=== PATIENT | male | born 1940 | race Caucasian/White ===

== ENCOUNTER 2017-09-09 15:38 | Inpatient (IN) | payer MEDICARE, BC ==
[2017-09-09 16:14] LABS: pH, Arterial 7.26 (7.35-7.45)
[2017-09-09 16:15] LABS: Actual Bicarbonate (HCO3a) 26.6 mEq/L (22-26); Base Excess (BEa) -1.7 mEq/L (0 (+/-) 2.5); CO2 Tension 61.4 mmHg (35.0-45.0); Hematocrit-ABG 43.3 % (42.0-52.0); O2 Tension (PaO2) 50.7 mmHg (80.0-100.0)
[2017-09-09 16:16] LABS: Analyzer IN Cardio ER; Calcium, Ionized 1.1 mmol/L (1.12-1.30); Hemoglobin (Hb) 13.8 g/dL (14.0-18.0); Puncture Site RBRACH
[2017-09-09] MEDS ORDERED: CCU Electrolyte Replacement 1 EACH FS ONE (17:27)
[2017-09-09] MEDS ORDERED: Ondansetron HCl/PF 4 MG/2 ML Vial IVP PRN ×2 (17:27→17:34)
[2017-09-09] MEDS ORDERED: Acetaminophen 325 MG TAB PO PRN (17:27)
[2017-09-09] MEDS ORDERED: Acetaminophen 650 MG Suppository PR PRN (17:27)
[2017-09-09] MEDS ORDERED: Mag-Al 1200 mg/1200 mg/30 ML UDCUP PO PRN ×2 (17:27→17:34)
[2017-09-09] MEDS ORDERED: Calcium Carbonate 500 MG ChewTAB PO PRN (17:27)
[2017-09-09] MEDS ORDERED: Norepinephrine 8 MG/0.9% NS 250 ML IVPB PRN (17:27)
[2017-09-09] MEDS ORDERED: Bisacodyl 10 MG SUPP PR PRN (17:27)
[2017-09-09] MEDS ORDERED: CCU Electrolyte Replacement 1 EACH IVPB ONE (17:34)
[2017-09-09] MEDS ORDERED: Benzonatate 100 MG CAP PO PRN (17:34)
[2017-09-09] MEDS ORDERED: cloNIDine 0.1 MG TAB PO PRN (17:34)
[2017-09-09] MEDS ORDERED: Loratadine 10 MG TAB PO PRN (17:34)
[2017-09-09] MEDS ORDERED: hydrALAZINE 20 MG/ML VIAL SLOW IVP PRN (17:34)
[2017-09-09] MEDS ORDERED: Nitroglycerin 0.4 MG TAB (25 Tab Bottle) SL PRN (17:34)
[2017-09-09] MEDS ORDERED: Milk Of Magnesia 30 ML UDCUP PO PRN (17:34)
[2017-09-09] MEDS ORDERED: Diabetic Tussin 200 MG/10 ML UDCUP PO PRN (17:34)
[2017-09-09] MEDS ORDERED: Dextrose 5 %-0.45 % NaCl 1,000 ML IV SCH (17:45)
[2017-09-09] MEDS ORDERED: Potassium Chloride 40 MEQ in Sodium Chloride 0.9% 250 ML 250 ML IVPB PRN (17:52)
[2017-09-09] MEDS ORDERED: Potassium Chloride 40 MEQ in Premix Bag 1 BAG IVPB PRN (17:52)
[2017-09-09] MEDS ORDERED: Magnesium 2 GM/NS 0.9% 100 ML 2 GM in Premix Bag 1 BAG IVPB PRN (17:52)
[2017-09-09] MEDS ORDERED: CCU ELECTROLYTE REPLACEMENT PROTOCOL FS PRN (17:52)
[2017-09-09] MEDS ORDERED: Potassium Chloride 20 MEQ TAB PO PRN (17:52)
[2017-09-09] MEDS ORDERED: Potassium Phosphate 12 MMOL in Sodium Chloride 0.9% 250 ML 250 ML IV PRN (17:52)
[2017-09-09] MEDS ORDERED: Potassium Phosphate 15 MMOL in Sodium Chloride 0.9% 250 ML 250 ML IV PRN (17:52)
[2017-09-09] MEDS ORDERED: Potassium Phosphate 9 MMOL in Sodium Chloride 0.9% 100 ML IVPB PRN (17:52)
[2017-09-09] MEDS ORDERED: Magnesium Oxide 400 MG TAB PO PRN ×2 (17:52)
[2017-09-09 17:59] LABS: Troponin I 0.107 ng/mL (< 0.028)
[2017-09-09] MEDS ORDERED: Vancomycin HCl 1.5 GM in Sodium Chloride 0.9% 250 ML 300 ML IVPB SCH (18:45)
[2017-09-09] MEDS: Dextrose 5 %-0.45 % NaCl 1,000 ML IV SCH (19:46)
[2017-09-09] MEDS: Cefepime 2 GM in Sodium Chloride 0.9% 100 ML IVPB SCH (20:53)
[2017-09-09] MEDS: Famotidine/PF 20 mg/2ml Vial SLOW IVP SCH (20:53)
[2017-09-09 20:59] LABS: Troponin I 0.098 ng/mL (< 0.028)
[2017-09-09] MEDS: Heparin 5,000 UNITS/ML VIAL SC SCH (20:59)
[2017-09-09] MEDS ORDERED: Vancomycin HCl 1 GM in Sodium Chloride 0.9% 250 ML 250 ML IVPB SCH (21:00)
--- NOTE | 2017-09-09 21:25 | HP ---
DATE OF ADMISSION: 09/10/2017 PRIMARY CARE PHYSICIAN: Dr. Mckeon. CHIEF COMPLAINT: Unresponsiveness, shortness of breath, and fall. HISTORY OF PRESENT ILLNESS: Mr. Gilbert is a 77-year-old male with history of hydrocephalus status pos t CLINICAL TRIALS DATA COORDINATOR shunt in the past as well as history of prostate cancer with removal of prostate and bladder wit h ileal conduit outside and history of dyslipidemia and tobacco abuse, who presented to the emergency room with the above-mentioned complaint. He was brought in via EMS initially to [place] [facility] with these complaints. History is mainly obtained by record review and discussion with the emergency room physician. The patient is on BiPAP and is quite altered and is not able to provide an y history and the left shortly afterwards and was not able to stay for history taking part becau se of young grandchild. According to the reports, EMS was called because the patient was feeling short of breath at home and when he was trying to get out off the wheelchair, he fell. According to the history given to the ER physician by : The patient is largely nonverbal, but he is able to ambulate himself from inside to outside to smoke and that is what he usually does all day long according to the . He has hist ory of pneumonia requiring intubation about a year ago when he was admitted at [facility] and he was a difficult extubation according to her. According to the report given by , he beauchamp s not like to eat or drink, or do much. He mainly just sits inside or outside and smokes. Nevertheless, upon presentation to the emergency room, he was very hypoxic with oxygen saturation of 88% on 4 liters oxygen. Blood pressure was 133/78, pulse of 109. In [place], he underwent trau ma and fall workup including a CT scan of the head, which was negative for any acute bleed or fractur es. He underwent a CT scan of the cervical spine, which was also negative for any acute fractures. He then underwent a CT scan of the chest, abdomen, and pelvis because of concerns of hypoxia and abdo esem distention. He was found to have left patchy infiltrate and a small pleural effusion on the le ft side. There is a concerning mass, which is necrotizing with possible superimposed infection in th e left lung with possibility of malignancy. CT scan of the abdomen and pelvis was unremarkable. He was given Zosyn and azithromycin in [place] ER and was transferred to our facility for further c are. In our emergency room, he was quite hypoxic and an ABG was checked that he was quite tachypneic as we ll. His ABG showed a pH of 7.26 with pCO2 of 61 and pO2 of 50. Emergency room physician put him on BiPAP and with few minutes of BiPAP, he started to come around and his oxygenation improved. He is n ow being admitted to IMCU on BiPAP for acute hypoxic respiratory failure: Pneumonia and new necrotiz ing lung mass. PAST MEDICAL HISTORY: 1. History of cerebrovascular accident. 2. Seizure disorder. 3. Normal pressure hydrocephalus with shunt placement in 2009. 4. History of prostate cancer with removal of prostate and bladder with an ileal conduit. 5. Hypertension. 6. Dyslipidemia. 7. Tobacco abuse and active smoker. 8. History of DVT, status post IVC filter. PAST SURGICAL HISTORY: 1. Left carotid endarterectomy. 2. Appendectomy. 3. Tonsillectomy 4. Adenoidectomy. 5. IVC filter placement. 6. Hemorrhoidectomy. ALLERGIES: No known medication allergies. CURRENT MEDICATIONS: Unavailable. SOCIAL HISTORY: He is and smokes about half pack a day for at least 52 years. No history of alcohol or drug abuse. FAMILY HISTORY: Significant for Alzheimer's and lung cancer. REVIEW OF SYSTEMS: Unobtainable as the patient is quite altered and is on BiPAP. He barely opens hi s eyes and response to verbal stimulus. LABORATORY DATA: Labs done in [place] as follows: CBC shows WBCs of 14.4 with 29% bands, hemog lobin and platelet count are within normal limits. His PT is 16.8, INR and PTT unremarkable. Serum chemistries show sodium of 147, BUN 69, creatinine 4.68. AST 289, ALT 62, troponin 0.107, blood suga r 134. Dilantin level less than 1.8. CT scan of the brain by my review has no evidence to suggest any subdural hematoma or hemorrhage or m asses. Chronic findings noticed. CT scan of the cervical spine is negative for any osseous abnormal ity. CT scan of the chest, abdomen, and pelvis as above. A 12-lead EKG by my review shows normal sinus rhythm at 83 beats per minute without any acute ST or T -wave changes. PHYSICAL EXAMINATION: VITAL SIGNS: Most recent vital signs, temperature 101.1, pulse of 89, respirations 33, saturating 92 % on BiPAP, blood pressure 130/62. GENERAL: He is quite uncomfortable and completely altered. He is on BiPAP mask. He is hallucinatin g and keeps his eyes closed and moves his hands in air nonpurposely. He is not able to answer any qu estions or follow any commands and he does not respond to any verbal stimulus. He appears shabby and unkempt. HEENT: Mucous membrane is dry. Difficult to assess further because of the BiPAP mask. Head is norm ocephalic, atraumatic. Pupils equal, reactive to light and accommodation. Sclerae anicteric. NECK: Supple without any lymphadenopathy, JVD, or bruit. CHEST: Revealed loud rhonchi bilaterally without any significant wheezes or crackles. CARDIOVASCULAR: Regular rate and rhythm appears regular without any murmur, rubs, or gallops. ABDOMEN: Nontender, somewhat distended and soft. He has an ileal conduit coming out to his right lo wer abdomen, which is covered by a diaper. He does not have any urine bag on it. EXTREMITIES: Free of any cyanosis, clubbing, or edema. NEUROLOGIC: Difficult to complete as the patient does not follow any commands. He is moving his upp er extremities on both sides freely, but other than that it is incomplete. SKIN: Shows free of any rashes. He has some bruises on the lower extremities and small minor abrasi ons. IMPRESSION AND PLAN: 1. Acute hypoxic respiratory failure. This is likely secondary to undiagnosed chronic obstructive p ulmonary disease as well as pneumonia and lung mass, possibly cancer. At this time, he will be kerrie nued on BiPAP and we will request consultation with Pulmonary Medicine and he will be admitted to [facility]. We will start him on nebulizers as needed on scheduled basis. He will be treated with empiric IV antibiotics. 2. Sepsis. This is secondary to pneumonia. He has leukocytosis and is febrile and has pneumonia. Empiric IV antibiotics as above. Blood cultures have been obtained in [place] room and we will follow the results. 3. Pneumonia. Most likely postobstructive pneumonia due to the lung mass on the left side. We will continue supportive and symptomatic care as above with oxygen, nebulizers, and empiric IV antibiotic s. 4. Acute renal insufficiency. This is most likely secondary to extreme dehydration, poor p.o. intak e as evident by high sodium. We will request consultation with Nephrology and start him on D5 half n ormal saline and monitor renal function closely. Avoid any nephrotoxic medications. 5. Elevated troponin, most likely demand ischemia from sepsis and hypoxia. He does not have any EKG changes to suggest acute coronary syndrome. We will continue to trend serial cardiac enzymes. 6. Elevated liver enzymes, unclear etiology, but most likely secondary to sepsis and acute liver inj ury. 7. History of seizure disorder. I am unsure if the patient takes any medications or not. If he beauchamp s, we will restart them. 8. History of normal pressure hydrocephalus with CLINICAL TRIALS DATA COORDINATOR shunt in 2009. 9. History of prostate cancer with removal of the prostate and bladder with ileal conduit. We will provide ostomy care here. 10. History of hypertension, currently controlled. Restart home medications and add p.r.n. antihype rtensives as indicated. 11. History of deep vein thrombosis, status post IVC filter placement. 12. Deep venous thrombosis and gastrointestinal prophylaxis and p.r.n. medications. 13. We will consult palliative care team for addressing goals of care. At this time, he is a FULL C ODE as per his . DISPOSITION: Mr. Gilbert is currently being admitted to IMCU for acute hypoxic respiratory failure: S epsis and pneumonia. Estimated length of stay at this time is at least 3-4 midnights. Further manag ement will depend upon his clinical course. He is critically ill with poor prognosis. Total time spent in the admission of this patient is 40 minutes including [id number] interaction an d discussion of the care with family briefly.
[2017-09-10] MEDS: Dextrose 5 %-0.45 % NaCl 1,000 ML IV SCH ×6 (01:30→20:48)
--- NOTE | 2017-09-10 04:30 | CON ---
DATE OF CONSULTATION: 09/09/2017 CONSULTING PHYSICIAN: Adrian Carlos MD REQUESTING PHYSICIAN: Sandrine Larson MD REASON FOR CONSULTATION: Acute kidney injury. IMPRESSION: 1. Acute kidney injury. This is likely cytokine-mediated in the context of sepsis as well as dehydr ation/intravascular depletion. 2. Hypernatremia in the context of free water deficit, slight dehydration. 3. Respiratory acidosis in the context of possible chronic obstructive pulmonary disease. PLAN: 1. IV fluid resuscitation with hypotonic solution to address the hyponatremia well as the intravascu lar depletion. 2. Renally dose all medications per low GFR and avoid potentially nephrotoxic agents. 3. Further management will be dependent on the clinical course. At this point, there is no indicati on for renal replacement therapy. HISTORY OF PRESENT ILLNESS: History is that of a 77-year-old gentleman, who is an active smoker, who transferred from [place] where patient presented with shortness of breath and weakness and fall while trying to get out of wheelchair. Patient on presentation noted with a creatinine above. The patient's creatinine baseline is normal in the 1 range. The patient has not been eating or drinking very well and will follow clinically. Laboratory investigation revealed elevated white blood cell co unt consistent with possible sepsis, probably of pulmonary origin. PAST MEDICAL HISTORY: Significant for SASH STICKER shunt in the context of hydrocephalus, prostate cancer, gen eralized seizure, dyslipidemia. MEDICATIONS: Reviewed as documented on [place]. SOCIAL HISTORY: No alcohol. Patient continues to smoke. REVIEW OF SYSTEMS: Highly limited as patient is currently on BiPAP. LABORATORY INVESTIGATION: Significant for pH of 7.26 with pCO2 of 61. Chemistry showed sodium of 14 7, BUN of 69 with a creatinine 4.68. PHYSICAL EXAMINATION: GENERAL: On examination, the patient was found to be ill looking with BiPAP in place with blood pres sure 102/69, respiratory rate of 24, O2 saturation of 92%. HEENT: Remarkable for BiPAP mask in place with dry oral mucosa. CARDIOVASCULAR SYSTEM: First and second heart sounds were heard. RESPIRATORY SYSTEM: Showed a lot of transmitted sounds from BiPAP. DIGESTIVE SYSTEM: Revealed a benign abdomen with positive bowel sounds. EXTREMITIES: No peripheral edema. NEUROLOGIC: No lateralizing signs. LYMPHATICS: No peripheral lymphadenopathy. SUMMARY: A 77-year-old gentleman who is here with acute kidney injury in the context of infection. Thank you for this consultation. We will follow with you.
[2017-09-10 07:34] LABS: Hemoglobin 14.1 g/dL (14.0-18.0); Mean Corpuscular HGB CONC 30.7 g/dL (32.0-36.0); Mean Corpuscular Hemoglobin 29.4 pg (27.0-31.0); Mean Corpuscular Volume 95.6 fl (80.0-94.0); Mean Platelet Volume 9.5 fL (7.4-10.4); Platelet Count 193 thou/uL (130-400); RBC Distribution Width 13.7 % (11.5-14.5); Red Blood Cell (RBC) Count 4.81 mill/uL (4.70-6.10); White Blood Cell (WBC) Count 16.3 thou/uL (4.8-10.8)
[2017-09-10 07:47] LABS: Potassium 4.3 mmol/L (3.5-5.1); Sodium 147 mmol/L (136-145)
[2017-09-10 07:48] LABS: Anion Gap 18 mmol/L (10-20); Carbon Dioxide 24 mmol/L (23-31)
[2017-09-10 07:49] LABS: Calc. Creatinine Clearance 14 mL/min (70-130)
[2017-09-10 07:51] LABS: Calcium 8.9 mg/dL (7.8-10.44); Glucose 164 mg/dL (83-110)
[2017-09-10 08:01] LABS: BUN (Urea Nitrogen) 82 mg/dL (8.4-25.7); Chloride 109 mmol/L (98-107)
[2017-09-10 08:02] LABS: Estimated GFR-MDRD 10
--- NOTE | 2017-09-10 08:13 | RAD ---
CHEST 1 VIEW: HISTORY: Ventilated patient. COMPARISON: Chest radiograph from 2016. FINDINGS: There is a dense upper lobe airspace opacity. Layering left effusion. Mild pulmonary edema. Shunt catheter projects over the right hemithorax. IMPRESSION: New from comparison examination dense upper lobe airspace opacity concerning for a malignant process. Please see the most recent CT of chest. POS: VITO
[2017-09-10 08:35] LABS: Band 3 % (5-11); Eosinophils 1 % (0-10); Lymphocytes 5 % (21-51); MDiff Complete? YES; Monocytes 4 % (0-10); Neutrophil 87 % (42-75); PLT Morphology Comment Appears Adequate; Polychromasia SLIGHT = 2-3 cells (100X) (0-2/hpf)
[2017-09-10] MEDS: Heparin 5,000 UNITS/ML VIAL SC SCH ×2 (08:35→20:54)
[2017-09-10] MEDS: Cefepime 2 GM in Sodium Chloride 0.9% 100 ML IVPB SCH (08:36)
--- NOTE | 2017-09-10 08:48 | CON ---
DATE OF CONSULTATION: 09/10/2017 CONSULTING PHYSICIAN: Dr. Larson from the Hospitalist group. REASON FOR CONSULTATION: Lung mass and respiratory failure. HISTORY OF PRESENT ILLNESS: Mr. Gilbert is a 77-year-old male, who presented to the hospital yesterday with altered mental status and shortness of breath. He also apparently fell. He was placed on BiPAP. An x-ray workup showed him to have a large left upper lobe mass, which apparently has not been noted in the past. At the time of seeing him this morning, family is not available to discuss history, so what I have is obtained from speaking with nursing staff and from reviewing the chart. The patient is basically nonverbal. He will follow commands for me and he says "ouch" when I touch his abdomen. PAST MEDICAL HISTORY: 1. Cerebrovascular accident. 2. Seizure disorder. 3. Hydrocephalus with shunt placement. 4. Prostate cancer. 5. Hypertension. 6. Hyperlipidemia. 7. Tobacco abuse. 8. DVT. PAST SURGICAL HISTORY: 1. IVC filter placement. 2. Prostate removal. 3. Ileal conduit. 4. Appendectomy. 5. Tonsillectomy. 6. Adenoidectomy. 7. Hemorrhoidectomy. ALLERGIES: None. SOCIAL HISTORY: He is , smokes a half-pack per day and has done so for 50 years, does not consume alcohol. FAMILY MEDICAL HISTORY: Remarkable for Alzheimer's disease and lung cancer. REVIEW OF SYSTEMS: Cannot be obtained, because the patient is nonverbal. MEDICATIONS PRIOR TO ADMISSION: Prednisone, Spiriva, pravastatin, Dilantin, multivitamin, Levaquin, Plavix, Symbicort, Ziac, aspirin. PHYSICAL EXAMINATION: VITAL SIGNS: Temperature 98.1, pulse 82, respirations 24-30, O2 sat 98%, blood pressure 119/42. GENERAL: This is a disheveled-appearing male, who is nonverbal. HEENT EXAM: Remarkable for an unkempt smalls. NECK: No adenopathy, no JVD, no bruits. LUNGS: Almost absent breath sounds over the left upper lobe, clear on the right. CARDIAC: S1 and S2 regular. ABDOMEN: Soft, slightly tender to palpation. He has ileal conduit present in the right lower quadrant. EXTREMITIES: No clubbing, cyanosis, or edema. LABORATORY DATA: White blood cell count 16.3, hematocrit 46.0, platelet count 193. Sodium 147, potassium 4.3, chloride 109, CO2 of 24, BUN 82, creatinine 5.6 , glucose 164. ABG, pH 7.26, pCO2 61, pO2 of 50. His CT scan was reviewed in detail. He has a large necrotic-appearing left upper lobe mass with a more superior infiltrate. This does appear that it would probably invade the lingular segment, subsegment of the left upper lobe, possibly extends and work towards the main stem bronchus. ASSESSMENT: 1. Acute respiratory failure, requiring mechanical ventilation. 2. Likely pneumonia. 3. Large lung mass. 4. Acute renal failure. 5. History of seizure disorder. 6. Prostate cancer. 7. Failure to thrive. 8. History of deep venous thrombosis. RECOMMENDATIONS: The patient is continuing antibiotics for pneumonia and BiPAP for respiratory failure. At this point, it is almost impossible to work up the lung mass, because he is too unstable to undergo bronchoscopy. I am going to try to find a family member and speak to them about the patient's situation. I think his prognosis is extremely poor and I am not sure he will ever become stable to the point where he can undergo diagnostic bronchoscopy. I have reviewed the orders and agree with the BiPAP and the antibiotics. I will be happy to follow with you. 70 minutes time was spent performing this consultation. Of that time, >50% was spent with the patient and/or on the patient's hospital unit [facility]
--- NOTE | 2017-09-10 09:51 | PRG ---
DATE OF SERVICE: 09/10/2017 The patient was seen and examined. Still looking very bad on BiPAP. PHYSICAL EXAMINATION: VITAL SIGNS: Afebrile with temperature 98.1, pulse 82, respiration 24, blood pressure 118/42, O2 sat of 96% on BiPAP. HEENT: Unremarkable except a BiPAP mask in place. CARDIOVASCULAR: First and second heart sounds were heard. RESPIRATORY: Reveals a lot of transmitted sounds from the BiPAP. DIGESTIVE: Revealed a benign abdomen. EXTREMITIES: No peripheral edema. SKIN: No new gross rash. LYMPHATICS: No peripheral lymphadenopathy. LABORATORY: White count 16,300. Chemistry showed a sodium 147, BUN of 82 with a creatinine of 5.65. IMPRESSION: 1. Acute on chronic kidney disease, likely acute tubular necrosis induced by signs and symptoms in t he context of sepsis as well as possible intravascular depletion from dehydration. 2. Hyponatremia in the context of free water deficit. PLAN: 1. We will continue with current renal supportive measures. 2. We will continue with free water repletion. 3. There is no emergent indication at this point for renal replacement therapy (hemodialysis); [facility], if the patient's clinical condition continues to deteriorate in this manner this modality of bryanna tment will become an option for this patient. However, I do not see this patient as a great candidat e for this modality of treatment. CURRENT PATIENT CONDITION: Guarded.
--- NOTE | 2017-09-10 12:36 | PDOC.PN ---
- Subjective Encounter Start Date: 09/10/17 Encounter Start Time: 14:00 Subjective: Patient on BiPap, words not understandable. - Objective Resuscitation Status: Resuscitation Status FULL:Full Resuscitation MAR Reviewed: Yes Vital Signs & Weight: Vital Signs (12 hours) Temp Pulse Resp BP Pulse Ox 09/10/17 10:59 99.3 F 74 24 H 106/49 L 95 09/10/17 09:05 71 24 H 96 09/10/17 08:00 98.1 F 71 24 H 93 L 09/10/17 07:24 98.1 F 82 30 H 119/42 L 98 09/10/17 03:48 98.0 F 78 24 H 114/52 L 93 L Weight Admit Weight 199 lb 3.2 oz Weight 199 lb 9.6 oz I&O: 09/09/17 09/10/17 09/11/17 06:59 06:59 06:59 Intake Total 1467 900 Output Total 20 Balance 1447 900 Result Diagrams: 09/10/17 07:20 09/10/17 06:44 Phys Exam - Physical Examination Constitutional: NAD breathing easily on Bipap with sats 90% HEENT: moist MMs Respiratory: no wheezing, no rales, no rhonchi decreased BS on left Cardiovascular: RRR Gastrointestinal: soft, non-tender, positive bowel sounds Neurological: non-focal, moves all 4 limbs Psychiatric: normal affect Deviation from normal: unable to understand patient Dx/Plan (1) Acute respiratory failure with hypoxia Code(s): J96.01 - ACUTE RESPIRATORY FAILURE WITH HYPOXIA Status: Acute Comment: on Bipap (2) Pneumonia Code(s): J18.9 - PNEUMONIA, UNSPECIFIED ORGANISM Status: Acute Comment: likely postobstructive, on Cefepime and Vanc, Dr. Carr following (3) Lung mass Code(s): R91.8 - OTHER NONSPECIFIC ABNORMAL FINDING OF LUNG FIELD Status: Acute (4) Acute on chronic renal failure Code(s): N17.9 - ACUTE KIDNEY FAILURE, UNSPECIFIED; N18.9 - CHRONIC KIDNEY DISEASE, UNSPECIFIED Status: Acute Qualifiers: Acute renal failure type: with acute tubular necrosis Comment: creatinine remains elevated, getting fluids, Dr. Campbell following - Plan cont current plan of care, continue antibiotics * . - Discharge Day Encounter end time: 14:20
[2017-09-10] MEDS: Famotidine/PF 20 mg/2ml Vial SLOW IVP SCH (20:47)
[2017-09-10] MEDS ORDERED: Vancomycin HCl 500 MG in Sodium Chloride 0.9% 100 ML IVPB SCH (22:00)
[2017-09-11] MEDS: Dextrose 5 %-0.45 % NaCl 1,000 ML IV SCH ×4 (05:09→22:02)
[2017-09-11 06:23] LABS: Anion Gap 15 mmol/L (10-20); BUN (Urea Nitrogen) 89 mg/dL (8.4-25.7); Calc. Creatinine Clearance 12 mL/min (70-130); Calcium 8.5 mg/dL (7.8-10.44); Carbon Dioxide 23 mmol/L (23-31); Chloride 110 mmol/L (98-107); Estimated GFR-MDRD 8; Glucose 176 mg/dL (83-110); Potassium 3.5 mmol/L (3.5-5.1); Sodium 144 mmol/L (136-145)
[2017-09-11 06:29] LABS: Band 14 % (5-11); Hemoglobin 11.9 g/dL (14.0-18.0); Lymphocytes 1 % (21-51); MDiff Complete? YES; Mean Corpuscular HGB CONC 29.8 g/dL (32.0-36.0); Mean Corpuscular Volume 93.9 fl (80.0-94.0); Mean Platelet Volume 8.9 fL (7.4-10.4); Monocytes 2 % (0-10); Neutrophil 83 % (42-75); Platelet Count 226 thou/uL (130-400); RBC Distribution Width 13.7 % (11.5-14.5); Red Blood Cell (RBC) Count 4.27 mill/uL (4.70-6.10); White Blood Cell (WBC) Count 16.7 thou/uL (4.8-10.8)
--- NOTE | 2017-09-11 08:04 | PDOC.PN ---
- Subjective Encounter Start Date: 09/11/17 Encounter Start Time: 10:30 Subjective: Patient off Bipap this AM, sating well on NC. Recognizes . Complains -: of achying all over. Not able to give further history. Still confused. - Objective Resuscitation Status: Resuscitation Status FULL:Full Resuscitation MAR Reviewed: Yes Vital Signs & Weight: Vital Signs (12 hours) Temp Pulse Resp BP Pulse Ox 09/11/17 07:12 78 09/11/17 07:11 73 22 H 95 09/11/17 07:00 97.9 F 82 28 H 127/50 L 94 L 09/11/17 03:43 97.9 F 81 20 120/53 L 95 09/11/17 00:23 81 27 H 100 09/10/17 23:52 97.2 F L 81 25 H 116/50 L 100 Weight Admit Weight 199 lb 3.2 oz Weight 207 lb 4.8 oz I&O: 09/10/17 09/11/17 09/12/17 06:59 06:59 06:59 Intake Total 1467 3700 150 Output Total 20 500 Balance 1447 3200 150 Result Diagrams: 09/11/17 05:29 09/11/17 05:29 Phys Exam - Physical Examination Constitutional: NAD HEENT: moist MMs Respiratory: no wheezing, no rales, no rhonchi decreased bs on left, no increased WOB, on 4L NC and sating 92% Cardiovascular: RRR, no significant murmur Gastrointestinal: soft, non-tender, positive bowel sounds Neurological: non-focal, moves all 4 limbs Deviation from normal: Alert, oriented to person only Dx/Plan (1) Acute respiratory failure with hypoxia Code(s): J96.01 - ACUTE RESPIRATORY FAILURE WITH HYPOXIA Status: Acute Comment: on Bipap (2) Pneumonia Code(s): J18.9 - PNEUMONIA, UNSPECIFIED ORGANISM Status: Acute Comment: likely postobstructive, on Cefepime and Vanc, Dr. Carr following (3) Lung mass Code(s): R91.8 - OTHER NONSPECIFIC ABNORMAL FINDING OF LUNG FIELD Status: Acute (4) Acute on chronic renal failure Code(s): N17.9 - ACUTE KIDNEY FAILURE, UNSPECIFIED; N18.9 - CHRONIC KIDNEY DISEASE, UNSPECIFIED Status: Acute Qualifiers: Acute renal failure type: with acute tubular necrosis Comment: creatinine continuing to rise, getting fluids, Dr. Campbell following - Plan cont current plan of care, continue antibiotics, respiratory therapy, DVT proph w/SCDs * . - Discharge Day Encounter end time: 10:45
[2017-09-11] MEDS: Heparin 5,000 UNITS/ML VIAL SC SCH ×2 (08:19→21:52)
[2017-09-11] MEDS: Cefepime 1 GM in Sodium Chloride 0.9% 100 ML IVPB SCH (09:14)
--- NOTE | 2017-09-11 10:18 | RAD ---
PORTABLE UPRIGHT FRONTAL CHEST RADIOGRAPH: DATE: 09/11/17. COMPARISON: 09/10/17. HISTORY: CCU patient. FINDINGS: Dense nonspecific mass-like opacity is seen involving the left perihilar region and the majority of t he left upper lobe. In addition, the remainder of bilateral lungs demonstrates nonspecific diffuse r eticulonodular densities. Right-sided vascular catheter present. IMPRESSION: No significant interval change. POS: ANI
--- NOTE | 2017-09-11 13:59 | PRG ---
DATE OF SERVICE: 09/11/2017 SERVICE: Pulmonary Medicine. INTERVAL HISTORY: The patient is doing fine from a mentation standpoint. He is actually coming pam g very well. He is moving in the right direction. He is not quite back to baseline yet. His speech is still little bit garbled, but his mentation is much improved based on what the is suggesting . We attempted to give him a swallow evaluation today at bedside. He did poor with this. As such, Speech Pathology has been invited to work with the patient. There were no overnight events. PHYSICAL EXAMINATION: VITAL SIGNS: Afebrile, pulse 77, blood pressure 120/57, respirations 22, saturation 95% on 4 liters nasal cannula. GENERAL: The patient is awake, alert, no apparent distress. LUNGS: Decent air entry. There is a prolonged expiratory phase with rhonchi. There is minimal depe ndent crackles present. No wheezing is appreciated. HEART: Normal rate, regular. ABDOMEN: Soft, nontender, nondistended. Bowel sounds are positive. MUSCULOSKELETAL: No cyanosis or clubbing. There is 1+ pitting in the left lower extremity. There i s trace pitting in the right lower extremity. GENITOURINARY: Ileostomy tube is in place. NEUROLOGIC: Grossly nonfocal. LABORATORY DATA: WBC 16.7 and stable. Platelets 226,000, hemoglobin 11.9. Band count is 14% and up trending. That being said, the neutrophil count has improved to 83%. Creatinine 6.92, BUN 89, anio n gap 15, bicarbonate 23 and roughly stable. Chloride and sodium are at the upper limits of normal. IMAGING DATA: Chest x-ray demonstrates dense left upper lobe infiltrate. It is likely hiding a mass under it. There is no significant interval change present. ASSESSMENT: 1. Acute hypoxic respiratory failure. 2. Chronic obstructive pulmonary disease with acute exacerbation. 3. Community-acquired pneumonia. 4. Cavitary mass in the left upper lobe. PLAN: We will continue antibiotics, steroids, and nebulized medications. We will try to get him to degenerate sputum. We sent it for AFB and culture. I will put him in isolation for the time being, though I am doubtful that this represents tuberculosis infection. Pulmonary or Critical Care will co ntinue to follow along.
[2017-09-11 16:04] VITALS: BP 119/60
[2017-09-11] MEDS: Sodium Chloride 3% (15 ML) NEB NEB SCH ×2 (16:20→23:44)
--- NOTE | 2017-09-11 20:00 | PRG ---
DATE OF SERVICE: 09/11/2017 SUBJECTIVE: Patient was seen and examined, now in an isolation for possible TB in ICU, noted with th e following vital signs. PHYSICAL EXAMINATION: VITAL SIGNS: Afebrile, temperature 98.7, pulse 76, respiratory rate of 18, O2 sat 98% on 4 liters wi th blood pressure 139/59. HEENT: Unremarkable. CARDIOVASCULAR SYSTEM: First and heart sounds were heard. RESPIRATORY SYSTEM: Revealed diminished breath sounds. DIGESTIVE SYSTEM: Revealed benign abdomen. EXTREMITIES: No peripheral edema. SKIN: No new gross rash. LYMPHATICS: No peripheral lymphadenopathy. LABORATORY DATA: Laboratory investigation showed sodium of 144, creatinine 6.92, BUN of 89. IMPRESSION: 1. Multifactorial acute tubular necrosis, worsening. 2. Hyponatremia, which is much improved status post free water repletion. PLAN: 1. We will continue with current renal supportive measures. 2. No emergent indication at this point for renal replacement therapy. Hopefully, this acute tubula r necrosis will begin to reevaluate discussed, otherwise renal replacement therapy becomes the modali ty of treatment that this patient might be looking at. 3. Further management to be dependent on the clinical course.
[2017-09-11 21:37] LABS: Vancomycin, Random 19.5 ug/mL (See Comment)
[2017-09-11] MEDS ORDERED: Vancomycin HCl 500 MG in Sodium Chloride 0.9% 100 ML IVPB SCH (21:45)
[2017-09-11] MEDS: Famotidine/PF 20 mg/2ml Vial SLOW IVP SCH (21:59)
[2017-09-12 05:05] LABS: Anion Gap 13 mmol/L (10-20); BUN (Urea Nitrogen) 95 mg/dL (8.4-25.7); Calc. Creatinine Clearance 11 mL/min (70-130); Calcium 8.4 mg/dL (7.8-10.44); Carbon Dioxide 24 mmol/L (23-31); Chloride 112 mmol/L (98-107); Estimated GFR-MDRD 7; Glucose 124 mg/dL (83-110); Potassium 3.8 mmol/L (3.5-5.1); Sodium 145 mmol/L (136-145)
[2017-09-12] MEDS: Sodium Chloride 3% (15 ML) NEB NEB SCH (05:16)
[2017-09-12 05:45] LABS: Band 17 % (5-11); Eosinophils 1 % (0-10); Hemoglobin 11.6 g/dL (14.0-18.0); Lymphocytes 4 % (21-51); MDiff Complete? YES; Mean Corpuscular HGB CONC 31.3 g/dL (32.0-36.0); Mean Corpuscular Hemoglobin 29.4 pg (27.0-31.0); Mean Platelet Volume 8.8 fL (7.4-10.4); Monocytes 5 % (0-10); Neutrophil 73 % (42-75); Platelet Count 224 thou/uL (130-400); RBC Distribution Width 13.7 % (11.5-14.5); Red Blood Cell (RBC) Count 3.96 mill/uL (4.70-6.10); White Blood Cell (WBC) Count 10.4 thou/uL (4.8-10.8)
[2017-09-12] MEDS: Cefepime 1 GM in Sodium Chloride 0.9% 100 ML IVPB SCH (08:32)
[2017-09-12] MEDS: Heparin 5,000 UNITS/ML VIAL SC SCH ×2 (08:32→20:37)
[2017-09-12] MEDS ORDERED: Eucerin (Mineral Oil/Petrolatum,White) 30 gm Jar TOP PRN (08:35)
[2017-09-12] MEDS ORDERED: Chloraseptic Spray 180 ml Bottle PO PRN (08:35)
[2017-09-12] MEDS ORDERED: Sodium Chloride 0.65% Nasal 44 ML BOT EA NARE PRN (08:35)
[2017-09-12] MEDS ORDERED: Artificial Tears 18 DROP/0.9 ML EA EYE PRN (08:35)
--- NOTE | 2017-09-12 09:11 | RAD ---
CHEST 1 VIEW: COMPARISON: 09/11/17. HISTORY: Lung opacification. Pneumonia. FINDINGS: Redemonstration of a ventriculoperitoneal shunt catheter. Persistent interstitial and alveolar opaci ties in the leyva of the lung parenchyma. Stable focal opacity in the left lung. No pneumothorax. IMPRESSION: No significant change. POS: [facility]
[2017-09-12] MEDS: Dextrose 5 %-0.45 % NaCl 1,000 ML IV SCH ×2 (10:06→20:36)
--- NOTE | 2017-09-12 11:16 | PRG ---
DATE OF SERVICE: 09/12/2017 SERVICE: Pulmonary Medicine. INTERVAL HISTORY: The patient is doing well from a respiratory standpoint. He has no complaints of chest pain, nausea, vomiting, fevers or chills. He does have a little bit of belly discomfort, leg discomfort, arm discomfort. I am told that his bowels are working, however. PHYSICAL EXAMINATION: VITAL SIGNS: Afebrile, pulse 78, blood pressure 135/53, respirations 14, saturation 93% on 2 liters nasal cannula. GENERAL: The patient is alert, awake. He is alert. He is in no apparent distress. HEART: Normal rate and regular. ABDOMEN: Soft. Minimal tenderness to palpation, but there is no rebound or guarding present. Bowel sounds are present. GENITOURINARY: No Cabezas catheter. He has an ileal conduit. NEUROLOGIC: Grossly nonfocal. LABORATORY DATA: WBC 10.4 and beautifully down trending. Hemoglobin 11.6, platelets 224,000. Band count is 17%, remains a little elevated. Creatinine 7.35 and continuing to trend upward. The trend has been improved in a favorable direction; however. BUN 95 and chloride 112. Vancomycin is 19.5, which was a random level. Respiratory culture is unremarkable to date. AFB smear and culture is currently pending. IMAGING DATA: Stable left upper lobe infiltrate which is fairly dense. There is also a right mid lung zone infiltrate and a left lower lobe infiltrate. ASSESSMENT: 1. Acute hypoxic respiratory failure. 2. Chronic obstructive pulmonary disease with acute exacerbation. 3. Community-acquired pneumonia. 4. Cavitary mass in the left upper lobe. PLAN AND DISCUSSION: We will continue our airborne precautions. If AFB smear is negative x3, he can go down for a bronchoscopy next week once he clears his pneumonia touch more. If all 3 smears are negative, discontinue air born precautions and consider transition to the floor. His urine output is starting to miner pick and cleared out a little bit. As such, I think that his kidney injury is resolving. Time will tell however. He will remain in the ICU for an additional 24 hours. NAFISA
--- NOTE | 2017-09-12 11:29 | PDOC.PN ---
- Subjective Encounter Start Date: 09/12/17 Encounter Start Time: 08:50 -: old records requested/rev Patient seen and examined for pneumonia. No overnight events - Objective Resuscitation Status: Resuscitation Status FULL:Full Resuscitation MAR Reviewed: Yes Vital Signs & Weight: Vital Signs (12 hours) Temp Pulse Resp Pulse Ox 09/12/17 07:22 97.6 F 78 14 93 L 09/12/17 07:00 97.6 F 09/12/17 06:15 90 L 09/12/17 06:11 79 25 H 90 L 09/12/17 04:00 97.0 F L 09/12/17 00:01 95 09/12/17 00:00 97.8 F 09/11/17 23:44 95 Weight Admit Weight 199 lb 3.2 oz Weight 213 lb 6.519 oz Most Recent Monitor Data Heart Rate from ECG 78 NIBP 135/53 NIBP BP-Mean 82 Respiration from ECG 22 SpO2 91 I&O: 09/11/17 09/12/17 09/13/17 06:59 06:59 06:59 Intake Total 3700 4135 Output Total 500 1075 0 Balance 3200 3060 0 Result Diagrams: 09/12/17 04:25 09/12/17 04:25 Radiology Reviewed by me: Yes (chest xray) EKG Reviewed by me: Yes (nsr) Phys Exam - Physical Examination Constitutional: NAD HEENT: PERRLA, moist MMs, sclera anicteric Neck: no JVD, supple Respiratory: no wheezing, no rales, no rhonchi coarse sound Cardiovascular: RRR, no significant murmur, no rub Gastrointestinal: soft, non-tender, no distention, positive bowel sounds colostomy+, wound with dressing Musculoskeletal: no edema, pulses present Neurological: non-focal, moves all 4 limbs Lymphatic: no nodes Psychiatric: normal affect Skin: no rash, normal turgor Dx/Plan (1) Acute respiratory failure with hypoxia and hypercapnia Code(s): J96.01 - ACUTE RESPIRATORY FAILURE WITH HYPOXIA; J96.02 - ACUTE RESPIRATORY FAILURE WITH HYPERCAPNIA Status: Acute (2) Acute worsening of stage 3 chronic kidney disease Code(s): N18.3 - CHRONIC KIDNEY DISEASE, STAGE 3 (MODERATE) Status: Acute (3) COPD exacerbation Code(s): J44.1 - CHRONIC OBSTRUCTIVE PULMONARY DISEASE W (ACUTE) EXACERBATION Status: Acute (4) Community acquired bacterial pneumonia Code(s): J15.9 - UNSPECIFIED BACTERIAL PNEUMONIA Status: Acute (5) Demand ischemia Code(s): I24.8 - OTHER FORMS OF ACUTE ISCHEMIC HEART DISEASE Status: Acute (6) Sepsis with acute organ dysfunction Code(s): A41.9 - SEPSIS, UNSPECIFIED ORGANISM; R65.20 - SEVERE SEPSIS WITHOUT SEPTIC SHOCK Status: Acute (7) Dementia Code(s): F03.90 - UNSPECIFIED DEMENTIA WITHOUT BEHAVIORAL DISTURBANCE Status: Chronic (8) Dyslipidemia Code(s): E78.5 - HYPERLIPIDEMIA, UNSPECIFIED Status: Chronic (9) Normal pressure hydrocephalus Code(s): G91.2 - (IDIOPATHIC) NORMAL PRESSURE HYDROCEPHALUS Status: Chronic Comment: has [employer] AGENT shunt (10) Seizure disorder Code(s): G40.909 - EPILEPSY, UNSP, NOT INTRACTABLE, WITHOUT STATUS EPILEPTICUS Status: Chronic - Plan cont current plan of care, continue antibiotics, respiratory therapy * medication reviewed as below * symptomatic treatment * rule out TB for now * bronchoscopy will defer to pulmonary * nephrology following, now pt is making urine, monitor renal function, still creatinine is high. * continue cefepime and vancomycin Review of Systems - Review of Systems Other: not reliable due to his level of cognitive status - Medications/Allergies Allergies/Adverse Reactions: Allergies Allergy/AdvReac Type Severity Reaction Status Date / Time No Known Allergies Allergy Verified 07/30/15 00:54 Medications: Current Medications Acetaminophen (Tylenol) 650 mg CA Q4H PRN PRN Reason: Headache/Fever or Pain Acetaminophen (Tylenol) 650 mg PO Q4H PRN PRN Reason: Headache/Fever or Pain Al Hydroxide/Mg Hydroxide (Maalox) 30 ml PO Q8H PRN PRN Reason: Indigestion Albuterol/Ipratropium (Duoneb) 3 ml NEB [id number] PRN PRN Reason: SOB &/or Wheezing Albuterol/Ipratropium (Duoneb) 3 ml NEB [id number] JASON Last Admin: 09/12/17 06:11 Dose: 3 ml Artificial Tears (Tears Naturale) 0 drop EA EYE PRN PRN PRN Reason: Dry Eyes Bisacodyl (Dulcolax) 10 mg CA Q24H PRN PRN Reason: Constipation Calcium Carbonate (Tums) 1,000 mg PO Q4H PRN PRN Reason: Heartburn or Indigestion Clonidine (Catapres) 0.1 mg PO Q4H PRN PRN Reason: Systolic BP > 160 Famotidine (Pepcid) 20 mg SLOW IVP QPM [facility] Last Admin: 09/11/17 21:59 Dose: 20 mg Guaifenesin (Robitussin Sf) 200 mg PO Q4H PRN PRN Reason: Cough Heparin Sodium (Porcine) (Heparin) 5,000 units SC BID [facility] Last Admin: 09/12/17 08:32 Dose: 5,000 units Hydralazine HCl (Apresoline) 10 mg SLOW IVP Q4H PRN PRN Reason: Systolic BP > 170 Levetiracetam 500 mg/ Device 100 mls @ 200 mls/hr IVPB BID [facility] Last Admin: 09/12/17 08:32 Dose: 100 mls Cefepime HCl 1 gm/ Sodium (Chloride) 100 mls @ 200 mls/hr IVPB QAM [facility] Last Admin: 09/12/17 08:32 Dose: 100 mls Dextrose/Sodium Chloride (D5 1/2 Ns) 1,000 mls @ 100 mls/hr IV .Q10H [facility] Last Admin: 09/12/17 10:06 Dose: 1,000 mls Lactulose (Lactulose) 20 gm PO DAILYPRN PRN PRN Reason: Constipation Loratadine (Claritin) 10 mg PO DAILYPRN PRN PRN Reason: Sinus Symptoms Mineral Oil/White Petrolatum (Eucerin Cream) 0 gm TOP BIDPRN PRN PRN Reason: Dry Skin Nitroglycerin (Nitrostat) 0.4 mg SL Q5MIN PRN PRN Reason: Chest Pain Ondansetron HCl (Zofran) 4 mg IVP Q6H PRN PRN Reason: Nausea/Vomiting Phenol (Chloraseptic [place] 180 Ml Bot) 0 ml PO PRN PRN PRN Reason: Sore Throat Sodium Chloride (Flush - Normal Saline) 10 ml IVF PRN PRN PRN Reason: Saline Flush Last Admin: 09/10/17 23:40 Dose: 10 ml Sodium Chloride ([place] Nasal [place] 0.65%) 0 ml EA NARE QIDPRN PRN PRN Reason: Nasal Congestion
[2017-09-12] MEDS ORDERED: Acetaminophen 1,000 MG in Premix Bag 1 BAG IVPB SCH (20:30)
--- NOTE | 2017-09-12 20:57 | PRG ---
DATE OF SERVICE: 09/12/2017 SUBJECTIVE: The patient seen and examined, much more awake now. Noted with the following vital sign s. PHYSICAL EXAMINATION: VITAL SIGNS: Blood pressure 140/74, heart rate of 78, respiratory rate of 22. HEENT: Unremarkable. CARDIOVASCULAR: First and second heart sounds were heard. RESPIRATORY: Clear to auscultation. ABDOMEN: Digestive system revealed a benign abdomen. EXTREMITIES: No peripheral edema. LABORATORY INVESTIGATION: Significant for creatinine of 7.35, BUN of 95. IMPRESSION: Worsening acute tubular necrosis of multifactorial etiology with profound azotemia. PLAN: 1. We will continue with current renal supportive measures. The patient is not really a great frieda date for renal replacement therapy. Hopefully, the renal function will begin to turn around as it se ems that the creatinine is plateauing at this point. 2. Continue IV fluid resuscitation. 3. Further management to be dependent on the clinical course.
[2017-09-12] MEDS: Famotidine/PF 20 mg/2ml Vial SLOW IVP SCH (21:00)
[2017-09-13 05:19] LABS: Anion Gap 17 mmol/L (10-20); BUN (Urea Nitrogen) 93 mg/dL (8.4-25.7); Calc. Creatinine Clearance 11 mL/min (70-130); Calcium 8.8 mg/dL (7.8-10.44); Carbon Dioxide 19 mmol/L (23-31); Chloride 111 mmol/L (98-107); Estimated GFR-MDRD 7; Glucose 119 mg/dL (83-110); Potassium 3.8 mmol/L (3.5-5.1); Sodium 143 mmol/L (136-145)
[2017-09-13 05:47] VITALS: BMI 29.9
[2017-09-13 05:52] LABS: Band 3 % (5-11); Eosinophils 3 % (0-10); Hemoglobin 13.2 g/dL (14.0-18.0); Lymphocytes 10 % (21-51); MDiff Complete? YES; Mean Corpuscular HGB CONC 30.9 g/dL (32.0-36.0); Mean Corpuscular Hemoglobin 28.5 pg (27.0-31.0); Mean Corpuscular Volume 92.4 fl (80.0-94.0); Mean Platelet Volume 9.1 fL (7.4-10.4); Monocytes 6 % (0-10); Myelocyte 1 % (0-0); Neutrophil 77 % (42-75); Platelet Count 232 thou/uL (130-400); RBC Distribution Width 14.1 % (11.5-14.5); Red Blood Cell (RBC) Count 4.63 mill/uL (4.70-6.10); White Blood Cell (WBC) Count 9.2 thou/uL (4.8-10.8)
[2017-09-13] MEDS: Dextrose 5 %-0.45 % NaCl 1,000 ML IV SCH ×2 (05:59→15:05)
[2017-09-13 08:21] LABS: ALT (SGPT) 101 U/L (8-55); AST (SGOT) 208 U/L (5-34); Albumin 2.9 g/dL (3.4-4.8); Alkaline Phosphatase 91 U/L (40-150); Bilirubin, Direct 0.6 mg/dL (0.1-0.3); Bilirubin, Total 0.8 mg/dL (0.2-1.2); Phosphorus 4.5 mg/dL (2.3-4.7); Protein, Total 6.8 g/dL (5.8-8.1)
[2017-09-13] MEDS: Cefepime 1 GM in Sodium Chloride 0.9% 100 ML IVPB SCH (08:38)
[2017-09-13] MEDS: Heparin 5,000 UNITS/ML VIAL SC SCH ×2 (08:38→20:27)
--- NOTE | 2017-09-13 09:26 | PRG ---
DATE OF SERVICE: 09/13/2017 Alexander gutierrez moans. He is not verbal. PHYSICAL EXAMINATION: VITAL SIGNS: He is afebrile, heart rate 81, respiratory rate is 23, oximetry is 93 on room air, bloo d pressure 137/72. LUNGS: Remarkable for rhonchi bilaterally. HEART: Regular rhythm. ABDOMEN: Soft. He moans when I palpate his abdomen, but I do not think he is truly tender. LABORATORY DATA: White count 9.2, hemoglobin 13.2, platelets 232. Sodium 143, potassium 3.8, chloride 101, bicarbonate 19, BUN 93, creatinine 7.43. IMPRESSION: 1. Respiratory failure. 2. Acute on chronic kidney disease. 3. Pneumonia. 4. Large left lung mass. 5. ? Dementia. CT of his head done back in 09/09 shows small vessel ischemic changes. I doubt there are any good therapeutic options for this lung mass, there may not even need to be a br onchoscopy performed for a tissue diagnosis. 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 We will continue to follow, very few therapeutic options for him in my opinion based on my review of his CAT scan and all of his imaging and lab work. He is not a good candidate for renal replacement t herapy and would not recommend dialysis to save him to of a lung malignancy. All of his acid fast bacilli smears are negative so far. This radiographic abnormality is much more consistent with a malignant process.
--- NOTE | 2017-09-13 10:16 | PDOC.PN ---
- Subjective Encounter Start Date: 09/13/17 Encounter Start Time: 09:20 pt is confused, does not follow command, opens eye, he has gurgling sound in chest, very weak Patient seen and examined for pneumonia and JHONATAN. No overnight events - Objective Resuscitation Status: Resuscitation Status FULL:Full Resuscitation MAR Reviewed: Yes Vital Signs & Weight: Vital Signs (12 hours) Temp Pulse Resp Pulse Ox 09/13/17 07:05 98.1 F 81 23 H 93 L 09/13/17 06:36 92 L 09/13/17 06:34 96 18 92 L 09/13/17 01:32 95 09/13/17 00:00 97.9 F Weight Admit Weight 199 lb 3.2 oz Weight 208 lb 15.971 oz Most Recent Monitor Data Heart Rate from ECG 89 NIBP 137/72 NIBP BP-Mean 82 Respiration from ECG 24 SpO2 92 I&O: 09/12/17 09/13/17 09/14/17 06:59 06:59 06:59 Intake Total 4135 2559 Output Total 1075 1975 Balance 3060 584 Result Diagrams: 09/13/17 04:31 09/13/17 04:31 Radiology Reviewed by me: Yes (chest xray) EKG Reviewed by me: Yes (tachycardia) Phys Exam - Physical Examination Constitutional: NAD confused HEENT: PERRLA, moist MMs, sclera anicteric Neck: no JVD, supple Respiratory: wheezing present coarse rales Cardiovascular: RRR, no significant murmur, no rub tachycardia Gastrointestinal: soft, non-tender, no distention colostomy+ Musculoskeletal: pulses present, edema present Neurological: moves all 4 limbs unable to assess Lymphatic: no nodes Skin: no rash, normal turgor Dx/Plan (1) Acute respiratory failure with hypoxia and hypercapnia Code(s): J96.01 - ACUTE RESPIRATORY FAILURE WITH HYPOXIA; J96.02 - ACUTE RESPIRATORY FAILURE WITH HYPERCAPNIA Status: Acute (2) Acute worsening of stage 3 chronic kidney disease Code(s): N18.3 - CHRONIC KIDNEY DISEASE, STAGE 3 (MODERATE) Status: Acute (3) COPD exacerbation Code(s): J44.1 - CHRONIC OBSTRUCTIVE PULMONARY DISEASE W (ACUTE) EXACERBATION Status: Acute (4) Community acquired bacterial pneumonia Code(s): J15.9 - UNSPECIFIED BACTERIAL PNEUMONIA Status: Acute (5) Demand ischemia Code(s): I24.8 - OTHER FORMS OF ACUTE ISCHEMIC HEART DISEASE Status: Acute (6) Sepsis with acute organ dysfunction Code(s): A41.9 - SEPSIS, UNSPECIFIED ORGANISM; R65.20 - SEVERE SEPSIS WITHOUT SEPTIC SHOCK Status: Acute (7) Dementia Code(s): F03.90 - UNSPECIFIED DEMENTIA WITHOUT BEHAVIORAL DISTURBANCE Status: Chronic (8) Dyslipidemia Code(s): E78.5 - HYPERLIPIDEMIA, UNSPECIFIED Status: Chronic (9) Normal pressure hydrocephalus Code(s): G91.2 - (IDIOPATHIC) NORMAL PRESSURE HYDROCEPHALUS Status: Chronic Comment: has PANEL SEWER shunt (10) Seizure disorder Code(s): G40.909 - EPILEPSY, UNSP, NOT INTRACTABLE, WITHOUT STATUS EPILEPTICUS Status: Chronic (11) Lung mass Code(s): R91.8 - OTHER NONSPECIFIC ABNORMAL FINDING OF LUNG FIELD Status: Acute - Plan cont current plan of care, continue antibiotics, social work coordinator, respiratory therapy * his renal function is continue to deteriorate, he is not a candidate for dialysis * continue empiric antibiotics for now * as per pulmonary, he has likely lung cancer based on imaging, bronchoscopy will not add to his overall quality of life * he needs palliative care * prognosis is very poor * medication reviewed as below * symptomatic treatment * unable to find any family to update his condition. Review of Systems - Review of Systems Other: unable to review due to his confused status - Medications/Allergies Allergies/Adverse Reactions: Allergies Allergy/AdvReac Type Severity Reaction Status Date / Time No Known Allergies Allergy Verified 07/30/15 00:54 Medications: Current Medications Acetaminophen (Tylenol) 650 mg CA Q4H PRN PRN Reason: Headache/Fever or Pain Acetaminophen (Tylenol) 650 mg PO Q4H PRN PRN Reason: Headache/Fever or Pain Al Hydroxide/Mg Hydroxide (Maalox) 30 ml PO Q8H PRN PRN Reason: Indigestion Albuterol/Ipratropium (Duoneb) 3 ml NEB [id number] PRN PRN Reason: SOB &/or Wheezing Albuterol/Ipratropium (Duoneb) 3 ml NEB [id number] JASON Last Admin: 09/13/17 06:34 Dose: 3 ml Artificial Tears (Tears Naturale) 0 drop EA EYE PRN PRN PRN Reason: Dry Eyes Bisacodyl (Dulcolax) 10 mg CA Q24H PRN PRN Reason: Constipation Calcium Carbonate (Tums) 1,000 mg PO Q4H PRN PRN Reason: Heartburn or Indigestion Clonidine (Catapres) 0.1 mg PO Q4H PRN PRN Reason: Systolic BP > 160 Famotidine (Pepcid) 20 mg SLOW IVP QPM [facility] Last Admin: 09/12/17 21:00 Dose: 20 mg Guaifenesin (Robitussin Sf) 200 mg PO Q4H PRN PRN Reason: Cough Heparin Sodium (Porcine) (Heparin) 5,000 units SC BID [facility] Last Admin: 09/13/17 08:38 Dose: 5,000 units Hydralazine HCl (Apresoline) 10 mg SLOW IVP Q4H PRN PRN Reason: Systolic BP > 170 Levetiracetam 500 mg/ Device 100 mls @ 200 mls/hr IVPB BID [facility] Last Admin: 09/13/17 08:37 Dose: 100 mls Cefepime HCl 1 gm/ Sodium (Chloride) 100 mls @ 200 mls/hr IVPB QAM [facility] Last Admin: 09/13/17 08:38 Dose: 100 mls Dextrose/Sodium Chloride (D5 1/2 Ns) 1,000 mls @ 100 mls/hr IV .Q10H [facility] Last Admin: 09/13/17 05:59 Dose: 1,000 mls Lactulose (Lactulose) 20 gm PO DAILYPRN PRN PRN Reason: Constipation Loratadine (Claritin) 10 mg PO DAILYPRN PRN PRN Reason: Sinus Symptoms Mineral Oil/White Petrolatum (Eucerin Cream) 0 gm TOP BIDPRN PRN PRN Reason: Dry Skin Nitroglycerin (Nitrostat) 0.4 mg SL Q5MIN PRN PRN Reason: Chest Pain Ondansetron HCl (Zofran) 4 mg IVP Q6H PRN PRN Reason: Nausea/Vomiting Phenol (Chloraseptic [place] 180 Ml Bot) 0 ml PO PRN PRN PRN Reason: Sore Throat Sodium Chloride (Flush - Normal Saline) 10 ml IVF PRN PRN PRN Reason: Saline Flush Last Admin: 09/10/17 23:40 Dose: 10 ml Sodium Chloride ([place] Nasal Nogal 0.65%) 0 ml EA NARE QIDPRN PRN PRN Reason: Nasal Congestion
--- NOTE | 2017-09-13 10:26 | RAD ---
ONE VIEW CHEST: Comparison: 09-12-17 History: Ventilated patient. Respiratory distress. Lung opacification. FINDINGS: Worsening opacification of the lung parenchyma. Re-demonstration of focal opacity in the left upper l obe. Worsening opacification in the left and right lung bases. No pneumothorax. Partially visualized CAMP NURSE shunt catheter is noted. IMPRESSION: Worsening lung parenchymal opacification. POS: [facility]
[2017-09-13] MEDS ORDERED: Morphine 4 MG/ML VIAL IV PRN (15:34)
[2017-09-13] MEDS: Morphine 4 MG/ML VIAL IV PRN ×2 (15:58→20:26)
--- NOTE | 2017-09-13 17:57 | PRG ---
DATE OF SERVICE: 09/13/2017 SUBJECTIVE: The patient was seen much more alert, but does not communicate well. PHYSICAL EXAMINATION: VITAL SIGNS: Afebrile with temperature 98.2, pulse 94, respiratory 23, blood pressure 116/86. HEENT: Unremarkable. CARDIOVASCULAR: First and second heart sounds were heard. RESPIRATORY: Clear to auscultation. DIGESTIVE SYSTEM: Revealed a benign abdomen with positive bowel sounds. EXTREMITIES: No peripheral edema. LABORATORY INVESTIGATIONS: Showed a creatinine of 7.43 with BUN of 93. IMPRESSION: 1. Acute on chronic kidney disease in the context of acute tubular necrosis. 2. Cardiopulmonary failure. PLAN: 1. We will continue renal supportive measures. 2. Further management to be dependent on the clinical course.
[2017-09-13 20:18] VITALS: TEMP 97.9
--- NOTE | 2017-09-14 12:20 | DIS ---
DATE OF ADMISSION: 09/09/2017 DATE OF DISCHARGE: 09/13/2017 PRIMARY CARE PHYSICIAN: Dr. Jasbir Mckeon. DISCHARGE DISPOSITION: Inpatient hospice facility. PRIMARY DISCHARGE DIAGNOSES: Acute respiratory failure with hypoxia, acute on chronic kidney failure , baseline chronic kidney disease stage 3, acute tubular necrosis, community-acquired bacterial pneum onia, chronic obstructive pulmonary disease exacerbation, sepsis with acute organ dysfunction, demand ischemia of myocardium, lung mass. SECONDARY DISCHARGE DIAGNOSES: Seizure disorder, normal pressure hydrocephalus, dyslipidemia, leonid ia. PRIMARY PROCEDURE AND OPERATION: None. RADIOLOGICAL INVESTIGATION: Chest x-ray on admission showed airspace opacity concerning for malignan t process. SIGNIFICANT LABORATORY DATA: WBC 9.2, hemoglobin 13.2, platelet 232, pH 7.26, CO2 61.4, O2 50.7. So dium 143, creatinine 7.43. PTH 189. Stool cultures remain negative. DISCHARGE MEDICATIONS: The patient is discharged to inpatient hospice facility for comfort care and medication will defer to hospice team at Hospice facility. The patient was on following medication b efore admission, aspirin 325 mg p.o. daily, bisoprolol with HCTZ 10/6.25 mg p.o. daily, Keppra 500 mg p.o. b.i.d., pravastatin 80 mg p.o. at bedtime. CONTRAINDICATIONS: None. CODE STATUS: DNR. INPATIENT CONSULTANTS: Dr. Robles and pulmonary group was following while in hospital. Dr. Renan pires was following for kidney failure. TEST RESULTS PENDING ON DISCHARGE: None. ALLERGIES: No known drug allergy. DISCHARGE PLAN: Post hospital, the patient is discharged to inpatient hospice facility for comfort c are. HOSPITAL COURSE: A 77-year-old male who was admitted by Dr. Sandrine Larson. Please see her H&P dicta rufus on 09/09/2017. The patient was admitted for respiratory distress. He was having hypoxia and hyp ercapnia. The patient was admitted in ICU. He required BiPAP. Pulmonary group was consulted. Carlene fields was concern of malignant process based on chest x-ray. He was also suffering from pneumonia. He w as treated with broad spectrum antibiotic therapy. He remained encephalopathic while in hospital. Nilay fields also had acute kidney failure from sepsis and his renal function was continuously getting worse. Nilay fields was not a good candidate for dialysis. The patient's prognosis was extremely poor. He was not familia ling to get any treatment for lung cancer as well and pulmonary group was pretty much sure that he hogan s underlying malignant process. The patient's had advanced directive and the patient expressed his wish that he does not want to live poor quality of life and he does not require tube feeding, dialysis or any kind of aggressive i ntervention and that is why we made a DNR. The patient's agreed with sending him to inpatient h ospice facility for comfort care. Out of hospital DNR paper work was done. Palliative care team was consulted and we arranged hospice facility. The patient was discharged to h ospice facility for comfort care. On the day of discharge, more than 30 minutes was spent with the patient and patient's to discus s about discharge planning.
== END 2017-09-13 20:45 | disposition hospice, inpatient (51) | DRG 871 ==
LOC: ERS 15:38 → IMCU/EMU 17:15 → CCU 09-11 17:20
PROVIDERS: ADMIT Internal Medicine; ATTEND Internal Medicine
PROC: 5A09457 Assistance with Respiratory Ventilation, 24-96 Consecutive Hours, Continuous Positive Airway Pressure (ICD-10-PCS; principal; 2017-09-09)
DX: A41.9 Sepsis, unspecified organism (principal); J96.01 Acute respiratory failure with hypoxia; J18.9 Pneumonia, unspecified organism; N17.0 Acute kidney failure with tubular necrosis; E87.1 Hypo-osmolality and hyponatremia; I24.8 Other forms of acute ischemic heart disease; J44.1 Chronic obstructive pulmonary disease with (acute) exacerbation; E87.2 Acidosis; G91.2 (Idiopathic) normal pressure hydrocephalus; Z85.46 Personal history of malignant neoplasm of prostate; Z90.79 Acquired absence of other genital organ(s); Z90.6 Acquired absence of other parts of urinary tract; E78.5 Hyperlipidemia, unspecified; F17.210 Nicotine dependence, cigarettes, uncomplicated; R91.8 Other nonspecific abnormal finding of lung field; Z86.73 Personal history of transient ischemic attack (TIA), and cerebral infarction without residual deficits; G40.909 Epilepsy, unspecified, not intractable, without status epilepticus; Z86.718 Personal history of other venous thrombosis and embolism; F03.90 Unspecified dementia, unspecified severity, without behavioral disturbance, psychotic disturbance, mood disturbance, and anxiety; Z66 Do not resuscitate; N18.3 Chronic kidney disease, stage 3 (moderate); I12.9 Hypertensive chronic kidney disease with stage 1 through stage 4 chronic kidney disease, or unspecified chronic kidney disease
CPT/HCPCS: 36415; 71045; 80048; 80076; 80202; 82805; 83970; 84100; 84484; 85025; 87070; 87116; 87205; 87206; 89220; 94640; 94660; G8996-GN-CM; G8997-GN-CK; J0131; J0692; J1644; J1953; J2270; J3370; J7050; J7620; S0028